=== PATIENT | female | born 1975 | race Caucasian/White ===

== ENCOUNTER 2017-04-04 20:04 | Emergency (ER) | payer BC ==
[~2017-04-04] VITALS: Ht 165.1 cm; Wt 76.2 kg
[2017-04-04 20:39] LABS: BASOPHIL COUNT 0.1 K/uL (0-0.1); EOSINOPHIL (%) 2.8 % (0-5); EOSINOPHIL COUNT 0.3 K/uL (0-0.3); HEMATOCRIT 46.2 % (36.0-46.0); IMMATURE GRANULOCYTE (%) 0.5 % (0.0-0.7); IMMATURE GRANULOCYTE COUNT 0.1 K/uL; LYMPHOCYTE COUNT 2.5 K/uL (1.0-2.8); MCH 34.6 PG (29.0-34.0); MCHC 34.2 G/DL (30.0-36.0); MCV 101.1 FL (83-99); MEAN PLAT.VOLUME 9.3 uM^3 (9.5-12.4); MONOCYTE (%) 6.1 % (3-12); MONOCYTE COUNT 0.7 K/uL (0-0.8); NEUTROPHIL (%) 66.1 % (45-76); PLATELET COUNT 257 K/uL (156-360); RBC DIS.WIDTH-CV 12.6 % (11.8-14.6); RBC DIS.WIDTH-SD 47.1 % (39-53); RED BLOOD COUNT 4.57 M/uL (3.80-5.20); WHITE BLOOD COUNT 10.6 K/uL (4.1-10.2)
[2017-04-04 20:43] LABS: ADD MIUA? NO; BILIRUBIN NEGATIVE; BLOOD NEGATIVE; COLOR YELLOW ((YELLOW)); GLUCOSE (STRIP) NEGATIVE; KETONES NEGATIVE; LEUKOCYTES NEGATIVE; NITRITE NEGATIVE; PROTEIN (STRIP) NEGATIVE; SPECIFIC GRAVITY 1.021 (1.000-1.030); UROBILINOGEN 0.2 MG/DL (0.2-1.0)
[2017-04-04 20:47] LABS: CHLORIDE 104 mEq/L (99-109); POTASSIUM 3.8 mEq/L (3.7-5.4); SODIUM 139 mEq/L (136-147)
[2017-04-04 20:50] LABS: GLUCOSE 95 mg/dL (70-99)
[2017-04-04 20:51] LABS: ANION GAP 10 MEQ/L (2-14)
[2017-04-04 20:52] LABS: TOTAL BILIRUBIN 0.5 mg/dL (0.0-1.0)
[2017-04-04 20:53] LABS: ALKALINE PHOSPHATASE 55 IU/L (3-129); GFR ESTIMATE (CALCULATED) 58 mL/min/
[2017-04-04 20:54] LABS: UREA NITROGEN (BUN) 22 mg/dL (9-23)
[2017-04-04 20:57] LABS: LIPASE 36 U/L (1.0-51.0)
[2017-04-04] MEDS ORDERED: ZOFRAN ODT4 MG PO (22:40)
[2017-04-04] MEDS ORDERED: PERCOCET 5/31 TABLET PO (22:40)
[2017-04-04 22:42] VITALS: BP 158/94
== END 2017-04-04 22:53 | disposition home or self-care (01) ==
LOC: EME 20:04
PROVIDERS: Physician Assistant
DX: N83.201 Unspecified ovarian cyst, right side (principal); R10.30 Lower abdominal pain, unspecified; Z90.710 Acquired absence of both cervix and uterus; Z88.2 Allergy status to sulfonamides; Z88.6 Allergy status to analgesic agent; Z87.891 Personal history of nicotine dependence
CPT/HCPCS: 74176; 76856; 80053; 81003; 83690; 85025; 99281; 99284; J2405; J3010